=== PATIENT | female | born 1995 | race Caucasian/White ===

== ENCOUNTER 2020-05-24 10:42 | Emergency (ER) | payer OTHER ==
[~2020-05-24] VITALS: Ht 154.9 cm; Wt 45.4 kg
[2020-05-24] MEDS ORDERED: PROZAC20 M1 PO (10:59)
[2020-05-24 12:00] VITALS: BP 121/76
== END 2020-05-24 12:01 | disposition home or self-care (01) ==
LOC: M.ERS 10:42
DX: B34.9 Viral infection, unspecified (principal); Z20.828 Contact with and (suspected) exposure to other viral communicable diseases; G43.909 Migraine, unspecified, not intractable, without status migrainosus; J45.909 Unspecified asthma, uncomplicated; Z79.899 Other long term (current) drug therapy; Z88.8 Allergy status to other drugs, medicaments and biological substances